=== PATIENT | female | born 1965 | race Caucasian/White ===

== ENCOUNTER 2020-10-30 07:25 | Day surgery (SDC) | payer OTHER ==
[~2020-10-30 07:25] MED LIST: ALBUTEROL SULF8.5 GM INH; BACLOFEN10 MG PO; BACLOFEN20 MG PO; BACTRIM DS TAB1 EACH PO; CEPHALEXIN500 MG PO; CLINDAMYCIN HC300 MG PO; CYCLOBENZAPRINE10 MG PO; GABAPENTIN300 MG PO; HYDROMORPHONE HC4 MG PO; LEVAQUIN500 MG PO; LISINOPRIL-HCT1 EACH PO; MORPHINE SULFAT30 M6 PO; NAPROSYN500 MG PO; NAPROXEN500 MG PO; NORCO 10-325 T1 EACH PO; NORCO 5-325 TA1 EACH PO; NORCO 7.5-3251 EACH PO; NUCYNTA50 MG PO; NYQUIL D COLD295 ML PO; OMEPRAZOLE20 MG PO; OMEPRAZOLE40 MG PO; OXYBUTYNIN CHLOR5 MG PO; OXYCONTIN10 MG PO; PAMELOR75 MG PO; POTASSIUM CHLO20 ME2 PO; PREDNISONE20 MG PO; PROMETHAZINE HC25 M1 PO; PROMETHAZINE12.5 M1 PO; PSEUDOEPHEDRINE60 MG PO; TIZANIDINE HCL4 MG PO; VENTOLIN HFA18 GM INH; WARFARIN SODIUM5 MG PO; WELLBUTRIN100 MG PO; ZESTORETIC 20-251 EA PO; [UNRECOGNIZED DRUG - REMARK] PO
--- NOTE | 2020-10-30 08:38 | NUR ---
10/30/20 0837 Jerrod Gates ARRIVED TO PACU ON ROOM AIR. 2L O2 VIA NC STARTED AND SPO2 INCREASES FROM 91% UP TO 95% WHILE SLEEPING. RESPONDS TO VOICE. REORIENTED TO TIME AND SITUATION.
--- NOTE | 2020-10-31 16:56 | OR ---
[facility] [address], [place] [address] Signed DATE OF OPERATION: 10/30/2020 SURGEON: Hamlet Cash MD PREOPERATIVE DIAGNOSIS: Persistent epigastric pain and anemia. POSTOPERATIVE DIAGNOSES: 1. Retained food in stomach suggestive of gastroparesis. 2. Normal-appearing esophagus. 3. Mild proximal gastritis. PROCEDURE: Esophagogastroduodenoscopy with biopsy. ANESTHESIA: Intravenous sedation, fentanyl 100 mcg, Versed 4 mg. INDICATION: This 55-year-old morbidly obese white woman is a patient of Dr. Monika Villar has been considered to have significant anemia, though no hematemesis or blood per rectum. She does have persistent epigastric and right upper abdominal pain. She does take Prilosec on a routine basis and it is helpful to her symptoms somewhat. She last underwent colonoscopy three years ago which was said to be normal. She has had no rectal bleeding. She is admitted to undergo upper endoscopy to better characterize the source of her pain and possibly anemia, particularly related to peptic disease. She understands the risks of bleeding, infection, and perforation and wished to proceed. FINDINGS: The vocal cords were normal. There was some pooling of secretions in the hypopharynx is noted. The stomach itself had retained food as did the duodenum to a degree. This would suggest gastroparesis. She had no antral gastritis. The pylorus was normal. There is no gastric outlet obstruction. She did have proximal gastritis. CLOtest was negative. The duodenum was normal. The biopsies were obtained to assess for celiac disease. DESCRIPTION OF PROCEDURE: The patient was brought to the endoscopy suite and given topical lidocaine spray, hypopharyngeal anesthesia and placed in lateral decubitus position. A bite block was placed and intravenous sedation induced with fentanyl and Versed. Full cardiopulmonary Electronically Signed By: HAMLET CASH MD 10/31/20 1656 PATIENT NAME: NARESH ROSS OPERATIVE REPORT DATE OF : 65 REPORT #: [id number] PHYSICIAN: HAMLET CASH MD PCP: MONIKA VILLAR MD REPORT IS CONFIDENTIAL AND NOT TO BE RELEASED WITHOUT AUTHORIZATION [facility] [address], [place] [address] Signed monitoring was maintained. An Olympus video upper endoscope was passed in the hypopharynx. The vocal cords appeared normal though there was some sanna-arytenoid pooling of secretions, which were suctioned free. The scope was advanced in the esophagus without problem, throughout its length, it was normal. The scope entered the stomach and noted was a fair amount of retained food. The patient had not eaten at least since yesterday. The scope was manipulated to the antrum, which appeared reasonably normal. The pylorus was normal. The scope was passed through into the duodenum. There was some retained food there as well. The scope was passed to the 3rd portion and biopsies taken of the 2nd portion to assess for celiac disease. There was no sign of ulceration. The scope was withdrawn and biopsies then undertaken in the more proximal stomach of the cardia as there was mild inflammation and a "fluffy" appearance. There was no sign of neoplasm or ulceration. Biopsies were obtained for both WEI and pathologic testing. The scope was withdrawn to the distal esophagus, which was entirely normal. Biopsies were taken of the distal esophagus. Careful withdrawal of scope showed no other abnormality. The scope was removed and the patient was taken to the recovery room in good condition. CONCLUDING DIAGNOSIS: No evidence of ulcer, neoplasm; retained food suggestive of gastroparesis. This may well account for her symptoms of upper abdominal pain, but certainly not for the anemia. PLAN: We will begin Carafate 1 g p.o. q.i.d. based on the proximal gastric inflammation. She will continue with Prilosec. We will additionally obtain a solid food emptying study and consideration will need to be made for a colonoscopy after all. We will check her CBC today to assess her degree of anemia. MD CRISTEL Petit/MODL /[id number] cc: Monika Villar MD Electronically Signed By: HAMLET CASH MD 10/31/20 1656 PATIENT NAME: NARESH ROSS OPERATIVE REPORT DATE OF : 65 REPORT #: [id number] PHYSICIAN: HAMLET CASH MD PCP: MONIKA VILLAR MD REPORT IS CONFIDENTIAL AND NOT TO BE RELEASED WITHOUT AUTHORIZATION [facility] [address] [place] [address] Signed Copies: MONIKA VILLAR DMD ~ Electronically Signed By: HAMLET CASH MD 10/31/20 1656 PATIENT NAME: NARESH ROSS OPERATIVE REPORT DATE OF : 65 REPORT #: [id number] PHYSICIAN: HAMLET CASH MD PCP: MONIKA VILLAR MD REPORT IS CONFIDENTIAL AND NOT TO BE RELEASED WITHOUT AUTHORIZATION
--- NOTE | 2020-11-02 12:41 | PATH ---
[facility] [address], [place] [address] Signed SPECIMEN(S): A DUODENAL BIOPSY SPECIMEN(S): B CARDIA BIOPSY SPECIMEN(S): C LOWER ESOPHAGEAL BIOPSY SPECIMEN SOURCE: A. DUODENAL BIOPSY B. CARDIA BIOPSY C. LOWER ESOPHAGEAL BIOPSY CLINICAL HISTORY: GERD, epigastric pain, anemia. MICROSCOPIC DESCRIPTION: Histologic sections of all submitted blocks are examined by light microscopy. These findings, together with the gross examination, support the pathologic diagnosis. FINAL PATHOLOGIC DIAGNOSIS: A. Duodenum, biopsy: - Duodenal mucosa with mild Cheryl's gland hyperplasia. - Negative for increased intraepithelial lymphocytes. - Negative for dysplasia or malignancy. B. Stomach, cardia, biopsy: - Oxyntic type mucosa with chronic, inactive gastritis and features of fundic gland polyp(s). - Negative for Helicobacter organisms on HE stain. - Negative for dysplasia or malignancy. C. Esophagus, lower, biopsy: - Squamous mucosa with mild reactive changes and minimal chronic inflammation. - Fragments of superficial gastric foveolar mucosa with no histopathologic abnormality. - Negative for intestinal metaplasia, dysplasia or malignancy. NAL:cml:C2NR GROSS DESCRIPTION: Three specimens are received in three containers labeled with "JR". A. The specimen, labeled "JR," and designated on the requisition "duodenal biopsy," is received in formalin and consists of one fragment of pink-martinez tissue (0.3 x 0.2 x 0.2 cm). The specimen is submitted entirely in cassette A1. B. The specimen, labeled "JR," and designated on the requisition "cardia biopsy," is received in formalin and consists of two fragments of pink-martinez PATIENT NAME: NARESH ROSS PATHOLOGY DATE OF : 65 REPORT #: [id number] PHYSICIAN: LAW PATHOLOGY PCP: MONIKA VILLAR MD REPORT IS CONFIDENTIAL AND NOT TO BE RELEASED WITHOUT AUTHORIZATION [facility] [address], [place] [address] Signed tissue (0.5 x 0.3 x 0.2 cm in aggregate). The specimen is submitted entirely in cassette B1. C. The specimen, labeled "JR," and designated on the requisition "lower esophagus biopsy," is received in formalin and consists of three fragments of white-martinez tissue (0.3 x 0.2 x 0.1 cm in aggregate). The specimen is submitted entirely in cassette C1. AC (under the direct supervision of a pathologist) The Gross Description was prepared using a voice recognition system. The report was reviewed for accuracy; however, sound-alike word errors, addition and/or deletions may occur. If there is any question about this report, please contact Client Services. PERFORMING LABORATORY: The technical component was performed by [facility], [address] [place] [id number] (Wrecking Mechanic: Kristi Liz MD; CLIA# [id number]). [facility], [address] [address] (CLIA# [id number]). Diagnostician: Ashley Serrato MD Pathologist Electronically Signed 11/02/2020 Copies: ~ PATIENT NAME: NARESH ROSS PATHOLOGY DATE OF : 65 REPORT #: [id number] PHYSICIAN: LAW PATHOLOGY PCP: MONIKA VILLAR MD REPORT IS CONFIDENTIAL AND NOT TO BE RELEASED WITHOUT AUTHORIZATION
== END 2020-10-30 09:58 | disposition home or self-care (01) ==
LOC: OPS 07:25 → DS 07:25 → OPS 08:30
PROVIDERS: ATTEND Surgery
PROC: 0DB68ZX Excision of Stomach, Via Natural or Artificial Opening Endoscopic, Diagnostic (ICD-10-PCS; principal; 2020-10-30 08:30)
DX: K31.89 Other diseases of stomach and duodenum (principal); K31.7 Polyp of stomach and duodenum; K29.50 Unspecified chronic gastritis without bleeding; K20.90 Esophagitis, unspecified without bleeding; D64.9 Anemia, unspecified; E66.01 Morbid (severe) obesity due to excess calories; J45.909 Unspecified asthma, uncomplicated; I10 Essential (primary) hypertension; K21.00 Gastro-esophageal reflux disease with esophagitis, without bleeding; G47.33 Obstructive sleep apnea (adult) (pediatric); Z78.0 Asymptomatic menopausal state; Z68.42 Body mass index [BMI] 45.0-49.9, adult
CPT/HCPCS: 36415; 85025; 88305; 99153; G0500; J0690; J2250; J3010; J7121

== ENCOUNTER 2022-08-15 01:33 | Emergency (ER) | payer OTHER ==
[~2022-08-15] VITALS: Ht 160 cm; Wt 117.9 kg
--- OUTSIDE RECORDS SUMMARY | 2022-08-15 01:34 | XMS ---
PreManage Notification: NARESH ROSS Security Cost Accounting Analyst Events No recent Security Events currently on file CRITERIA MET - [facility] CARE PROVIDERS MONIKA VILLAR [facility] Current PHONE: [phone] Yaron has no Care Guidelines for this patient. ERaina VISIT COUNT (12 MO.) 1 ROGELIO Chris TOTAL 1 NOTE: Visits indicate total known visits. ED/UCC VISIT TRACKING (12 MO.) 08/15/2022 01:33 ROGELIO Celeste [place] TYPE: Emergency COMPLAINT: - OVERDOSE INPATIENT VISIT TRACKING (12 MO.) No inpatient visits to display in this time frame [email or web address]
[2022-08-15] MEDS ORDERED: ROSUVASTATIN CA20 MG PO (02:07)
[2022-08-15] MEDS ORDERED: METOPROLOL SUCC50 MG PO ×2 (02:08)
[2022-08-15] MEDS ORDERED: CEPHALEXIN500 M1 PO (05:09)
== END 2022-08-15 08:18 | disposition home or self-care (01) ==
LOC: ED 01:33
DX: T40.2X1A Poisoning by other opioids, accidental (unintentional), initial encounter (principal); N39.0 Urinary tract infection, site not specified; E66.9 Obesity, unspecified; I10 Essential (primary) hypertension; Z87.891 Personal history of nicotine dependence; Z79.899 Other long term (current) drug therapy
CPT/HCPCS: 36415; 51702; 71045; 80053; 81001; 83605; 85025; 85610; 85730; 87088; 87502; 99284-25; G0480; J0696; J7030; U0003

== ENCOUNTER 2023-10-30 01:47 | Emergency (ER) | payer OTHER ==
[~2023-10-30] VITALS: Ht 160 cm; Wt 117.9 kg
[~2023-10-30 01:47] MED LIST changes: +CEPHALEXIN500 M1 PO; +METOPROLOL SUCC50 MG PO; +ROSUVASTATIN CA20 MG PO
--- OUTSIDE RECORDS SUMMARY | 2023-10-30 01:48 | XMS ---
PreManage Notification: NARESH ROSS Security Adjunct Psychology Instructor Events No recent Security Events currently on file CRITERIA MET - PDMP CARE PROVIDERS -, Pam- Dentist: Dietitian Teacher [facility] PHONE: [phone] Yaron has no Care Guidelines for this patient. E.Angel VISIT COUNT (12 MO.) 1 ROGELIO Chris TOTAL 1 NOTE: Visits indicate total known visits. ED/UCC VISIT TRACKING (12 MO.) 10/30/2023 01:48 ROGELIO Celeste OR TYPE: Emergency COMPLAINT: - FALL INPATIENT VISIT TRACKING (12 MO.) No inpatient visits to display in this time frame [email or web address]
[2023-10-30 02:55] VITALS: BP 100/63
== END 2023-10-30 02:55 | disposition home or self-care (01) ==
LOC: ED 01:47
DX: S93.402A Sprain of unspecified ligament of left ankle, initial encounter (principal); W18.30XA Fall on same level, unspecified, initial encounter; E66.9 Obesity, unspecified; I10 Essential (primary) hypertension; G47.30 Sleep apnea, unspecified; Z87.891 Personal history of nicotine dependence; Z79.899 Other long term (current) drug therapy
CPT/HCPCS: 73610; 73630; 99283-25

== ENCOUNTER 2025-01-25 15:56 | Emergency (ER) | payer OTHER ==
[~2025-01-25] VITALS: Ht 160 cm; Wt 120.0 kg
[2025-01-25 18:03] LABS: BASOPHILS 0.7 % (0-2); EOSINOPHILS 4.5 % (0-6); HEMATOCRIT 32.4 % (35.0-50.0); HEMOGLOBIN 10.6 g/dL (12.0-18.0); LYMPHOCYTES 23.2 % (24-44); MCH 25.8 (27-36); MCHC 32.6 g/dl (30-36); MCV 79.1 fl (81-99); MONOCYTES 6.9 % (0-12); NEUTROPHILS 64.7 % (39-80); PLATELET COUNT 414 K/uL (140-440); RDW 14.6 (10.5-15.0)
[2025-01-25 18:19] LABS: ALBUMIN 3.4 g/dL (3.4-5.0); ALBUMIN/GLOBULIN RATIO 0.94 (1.1-2.4); ANION GAP 11.4 (7-21); BILIRUBIN, TOTAL 0.3 mg/dL (0.2-1.0); BUN/CREATININE RATIO 13.13 (6.0-28.6); CALCIUM 8.6 mg/dL (8.5-10.1); CREATININE, SERUM 1.37 mg/dL (0.55-1.02); POTASSIUM 4.4 mmol/L (3.5-5.1)
[2025-01-25] MEDS ORDERED: LISINOPRIL-HCT1 EACH PO (18:20)
[2025-01-25] MEDS ORDERED: DULOXETINE HCL30 MG PO (18:20)
[2025-01-25] MEDS ORDERED: AMOX TR-K CLV1 EAC1 PO (19:25)
[2025-01-25] MEDS ORDERED: AMOXICILLIN/CLAVULANATE K 875 MG HOME.PACK PO ONE (19:30)
[2025-01-25] MEDS ORDERED: methylPREDNISolone 4 MG HOME.PACK PO ONE (19:30)
[2025-01-25] MEDS ORDERED: TRAMADOL HCL 50 MG HOME.PACK PO ONE (19:30)
[2025-01-25 19:47] VITALS: BP 138/100
== END 2025-01-25 19:44 | disposition home or self-care (01) ==
LOC: ED 15:56
PROVIDERS: Family Medicine
DX: K11.20 Sialoadenitis, unspecified (principal); G47.30 Sleep apnea, unspecified; I10 Essential (primary) hypertension; Z79.899 Other long term (current) drug therapy; Z87.891 Personal history of nicotine dependence
CPT/HCPCS: 36415; 70491; 80053; 85025; 99284-25; A9270; Q9967

== ENCOUNTER 2025-05-14 00:04 | Emergency (ER) | payer OTHER ==
[~2025-05-14] VITALS: Ht 160 cm; Wt 119.2 kg
[~2025-05-14 00:04] MED LIST changes: +AMOX TR-K CLV1 EAC1 PO; +DULOXETINE HCL30 MG PO
[2025-05-14] MEDS ORDERED: AMOX TR-K CLV1 EAC1 PO (00:26)
[2025-05-14] MEDS ORDERED: methylPREDNISolone 4 MG HOME.PACK PO ONE (00:30)
[2025-05-14] MEDS ORDERED: AMOXICILLIN/CLAVULANATE K 875 MG HOME.PACK PO ONE (00:30)
[2025-05-14 00:47] VITALS: BP 132/94
== END 2025-05-14 00:49 | disposition home or self-care (01) ==
LOC: ED 00:04
DX: K11.20 Sialoadenitis, unspecified (principal); I10 Essential (primary) hypertension; G47.30 Sleep apnea, unspecified; E66.9 Obesity, unspecified; Z68.42 Body mass index [BMI] 45.0-49.9, adult; Z87.891 Personal history of nicotine dependence; Z79.899 Other long term (current) drug therapy
CPT/HCPCS: 99283